=== PATIENT | male | born 1965 | race Caucasian/White ===

== ENCOUNTER 2020-06-19 17:17 | Emergency (ER) | payer OTHER, SELFPAY ==
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
[2020-06-19 17:30] VITALS: BP 134/91; PULSE 74; RESP 15; TEMP 36.7; O2SAT 98; BMI 20.4
[2020-06-19 17:39] VITALS: BP 134/91; PULSE 74; RESP 14; TEMP 36.7; O2SAT 98
== END 2020-06-19 17:39 | disposition home or self-care (01) ==
LOC: ER 17:51
PROVIDERS: Emergency Provider Emergency Medicine
DX: S46.812A Strain of other muscles, fascia and tendons at shoulder and upper arm level, left arm, initial encounter (principal); V43.52XA Car driver injured in collision with other type car in traffic accident, initial encounter; Y92.414 Local residential or business street as the place of occurrence of the external cause; R03.0 Elevated blood-pressure reading, without diagnosis of hypertension
CPT/HCPCS: 99281

== ENCOUNTER 2021-11-19 09:00 | Emergency (ER) | payer OTHER, SELFPAY ==
[2021-11-19 09:13] VITALS: BP 137/82; PULSE 81; RESP 16; TEMP 36.8; O2SAT 99; BMI 23.0
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
[2021-11-19 10:15] VITALS: BP 137/82; PULSE 81; RESP 16; TEMP 36.8
== END 2021-11-19 10:16 | disposition home or self-care (01) ==
PROVIDERS: Emergency Provider Nurse Practitioner Family
DX: M54.2 Cervicalgia (principal); M43.6 Torticollis; V89.2XXS Person injured in unspecified motor-vehicle accident, traffic, sequela
CPT/HCPCS: 72050; 99213; G0463

== ENCOUNTER → 2022-11-11 09:30 | Outpatient (CLI) | payer BC, SELFPAY ==
[2022-11-11 10:24] LABS: Basophils # 0.1 K/mm3 (0-0.2); Basophils % 1.6 % (0.1-2.0); Eosinophils # 0.2 K/mm3 (0.0-0.4); Eosinophils % 4.2 % (0.1-12.0); Hematocrit 46.4 % (42.0-52.0); Hemoglobin 14.9 g/dL (14.1-18.0); Lymphocytes # 1.8 K/mm3 (0.7-4.5); Lymphocytes % 41.4 % (10-50); Mean Corpuscular HGB Conc 32.1 g/dL (31.8-35.4); Mean Corpuscular Hemoglobin 31.7 pg (27.0-31.2); Mean Corpuscular Volume 98.9 fl (80-94); Mean Platelet Volume 8.2 fl (7.4-10.4); Monocytes # 0.3 K/mm3 (0.1-1.0); Monocytes % 7.3 % (1.7-9.3); Neutrophils % 45.4 % (37.0-80.0); Platelet Count 203 K/mm3 (142-424); Red Blood Count 4.69 M/mm3 (4.60-6.20); Red Cell Distribution Width 13.5 % (11.5-17.5); White Blood Count 4.3 K/mm3 (4.8-10.8)
[2022-11-11 10:45] LABS: Alanine Aminotransferase 33 U/L (12-78); Albumin Level 4.8 g/dl (3.5-5.0); Albumin/Globulin Ratio 1.8 (1.1-1.8); Alkaline Phosphatase 64 U/L (38-126); Anion Gap 10.8 mEq/L (5-15); Aspartate Amino Transferase 43 U/L (17-59); Blood Urea Nitrogen 12 mg/dl (9-20); Calcium 10.1 mg/dl (8.4-10.2); Carbon Dioxide 32 mmol/L (22.0-30.0); Chloride 98 mmol/L (98-107); Chol/HDL Ratio 2.1 (1-3.5); Cholesterol 219 mg/dl (140-200); Estimated Glomerular Filt Rate 115 ml/min (>60); GFR (African American) 140 ML/MIN (>60); Globulin 2.7 g/dL (1.3-3.2); Glucose 81 mg/dl (74-100); HDL Cholesterol 105 mg/dl (40-60); Potassium 4.8 mmoL/L (3.5-5.1); Sodium 136 mmol/L (136-145); Total Protein,Serum 7.5 g/dl (6.3-8.2); Triglycerides 80 mg/dl (30-150); VLDL Cholesterol 16 mg/dL (0-40)
[2022-11-11 11:02] LABS: 25-OH Vitamin D, Total 40.3 ng/mL (30-100)
[2022-11-11 11:17] LABS: Prostate Specific Ag Screen 1.1 ng/ml (0.0-4.0); Thyroid Stimulating Hormone 2.64 uIU/mL (0.465-4.68)
== END ==
PROVIDERS: PCP Family Medicine; Visit Provider Family Medicine
DX: Z00.00 Encounter for general adult medical examination without abnormal findings (principal); Z12.5 Encounter for screening for malignant neoplasm of prostate
CPT/HCPCS: 36415; 80053; 80061; 82306; 84443; 85025; G0103

== ENCOUNTER 2023-03-18 17:06 | Emergency (ER) | payer OTHER, BC, SELFPAY ==
[2023-03-18 17:07] VITALS: BP 122/84; PULSE 84; RESP 18; TEMP 36.9; O2SAT 100; BMI 21.7
--- NOTE | 2023-03-18 17:10 | PC.NURSE ---
Neg. FAST by Dr. Dempsey at bedside. Family at bedside.
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
[2023-03-18 17:31] VITALS: BP 125/75; PULSE 76; O2SAT 99
--- NOTE | 2023-03-18 17:35 | PC.NURSE ---
20g PIV inserted to left FA. XR at bedside.
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
--- NOTE | 2023-03-18 17:55 | PC.NURSE ---
pt arrived back to room from ct
[2023-03-18 18:23] LABS: Basophils % 0.4 % (0.1-2.0); Eosinophils # 0.2 K/mm3 (0.0-0.4); Hematocrit 39.7 % (42.0-52.0); Hemoglobin 12.7 g/dL (14.1-18.0); Lymphocytes # 1.6 K/mm3 (0.7-4.5); Lymphocytes % 35.2 % (10-50); Mean Corpuscular HGB Conc 31.9 g/dL (31.8-35.4); Mean Corpuscular Hemoglobin 30.7 pg (27.0-31.2); Mean Corpuscular Volume 96.3 fl (80-94); Mean Platelet Volume 8.2 fl (7.4-10.4); Monocytes # 0.3 K/mm3 (0.1-1.0); Monocytes % 7.4 % (1.7-9.3); Neutrophils # 2.3 K/mm3 (1.8-7.8); Neutrophils % 52.9 % (37.0-80.0); Platelet Count 187 K/mm3 (142-424); Red Blood Count 4.12 M/mm3 (4.60-6.20); Red Cell Distribution Width 14.1 % (11.5-17.5); White Blood Count 4.4 K/mm3 (4.8-10.8)
[2023-03-18 18:30] VITALS: BP 129/83; PULSE 69; O2SAT 99
[2023-03-18 18:36] LABS: Chloride 105 mmol/L (98-107); Potassium 3.6 mmoL/L (3.5-5.1); Sodium 137 mmol/L (136-145)
[2023-03-18 18:38] LABS: Alanine Aminotransferase 48 U/L (12-78); Alkaline Phosphatase 77 U/L (38-126); Aspartate Amino Transferase 65 U/L (17-59); Bilirubin,Total 0.6 mg/dl (0.2-1.3); Blood Urea Nitrogen 16 mg/dl (9-20); Creatinine Clearance Estimated 105 mL/min (50-200); Estimated Glomerular Filt Rate 99 ml/min (>60); GFR (African American) 120 ML/MIN (>60)
[2023-03-18 18:39] LABS: Albumin Level 4.1 g/dl (3.5-5.0); Albumin/Globulin Ratio 1.5 (1.1-1.8); Anion Gap 7.6 mEq/L (5-15); Calcium 9.5 mg/dl (8.4-10.2); Carbon Dioxide 28 mmol/L (22.0-30.0); Globulin 2.8 g/dL (1.3-3.2); Glucose 93 mg/dl (74-100); Total Protein,Serum 6.9 g/dl (6.3-8.2)
--- NOTE | 2023-03-18 19:20 | PC.NURSE ---
Thumb spike splint placed on pts Right thumb/hand. Pt given instructions on care. CR
--- NOTE | 2023-03-18 19:25 | PC.NURSE ---
rounded on pt, pt has family at [place], states no needs at this time.
[2023-03-18 19:29] VITALS: BP 121/82; PULSE 74; RESP 14; TEMP 36.7
--- NOTE | 2023-04-08 15:45 | PC.NURSE ---
Pt called requesting that this note be put in his file. He is requesting a call back from Dr. Dempsey for further referral for his neck and back pain. 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 He continued to insist that Dr Dempsey is who he wanted to speak to. I advised i woulkd make a note and I would let Dr Dempsey know of his wishes. Pt gave me cell number of [phone].
== END 2023-03-18 19:41 | disposition home or self-care (01) ==
PROVIDERS: Emergency Provider Emergency Medicine
DX: S62.234A Other nondisplaced fracture of base of first metacarpal bone, right hand, initial encounter for closed fracture (principal); V49.40XA Driver injured in collision with unspecified motor vehicles in traffic accident, initial encounter; M54.2 Cervicalgia; M54.6 Pain in thoracic spine
CPT/HCPCS: 70450; 71045; 72125; 72128; 72131; 72170; 73030; 73060; 73070; 73090; 73130; 80053; 85025; 96361; 96374; 96375; 99285; J0131

== ENCOUNTER 2024-07-28 06:26 | Day surgery (SDC) | payer BC, SELFPAY ==
[2024-07-25 14:22] VITALS: BMI 20.5
[2024-07-28 06:42] VITALS: BP 121/76; PULSE 70; RESP 18; TEMP 36.3; O2SAT 99
[2024-07-28] MEDS: LACTATED RINGERS 1000ML 1,000 ML 25 ML IV (06:50)
--- NOTE | 2024-07-28 06:57 | HMH.SCOPE ---
Procedure: Date: 07/28/24 Patient Date of :: 1965 Procedure Performed:: Total colonoscopy to terminal ileum with polypectomy using cold snare Indications:: Patient is a 59-year-old male from [facility]. Primary care provider is Ant Ness in [place]. He has never had prior colonoscopy. He did have a positive Cologuard 2-1/2 years ago in December 2021. He does state that he may have had some change in his bowel habits with some ribbonlike stools but he does state that he eats a bag of steamed spinach every morning. Incidentally the patient does have bilateral inguinal hernias apparently. He denies any pain with defecation. Denies any bleeding. No family history of colon cancer. . Performing Provider:: Eulalio Lopez MD Referring Provider:: Ant Ness Sedation:: MAC sedation Procedure:: Patient history was obtained and appropriate physical examination was performed. Patient's medications and allergies were reviewed. Informed consent was obtained after explaining the benefits, alternatives, and risks of the procedure including, but not limited to, bleeding, perforation, missed lesions, and adverse reaction to anesthesia medications. Patient was transported to endoscopy procedure room. Patient was connected to monitoring devices. Throughout the procedure the patient's blood pressure, pulse, and oxygen saturations were monitored continuously. Patient identification and planned procedure were verified by the staff. Patient was positioned in lateral decubitus position. Digital anorectal exam was performed. Variable stiffness Olympus colonoscope was inserted and advanced under direct visualization to the cecum. Adequacy of the colonic preparation was noted. The colonoscope was advanced a short distance into the terminal ileum. The colonoscope was then slowly withdrawn while carefully examining the color, texture, anatomy, and integrity of the mucosoa circumferentially. Within the rectum retroflexion was performed. Colonoscope was then withdrawn. Impression: Colonoscope was advanced to the cecum with some difficulty as there was some atony and significant redundancy mostly of the sigmoid colon with prolapsing mucosa. As the colonoscope was advanced there was noted to be a possible polyp. Colonic preparation was good. Colonoscope was advanced a short distance into the terminal ileum and there was some lymphoid hyperplasia. In the ascending colon there were a couple of diverticuli noted. Colonoscope was slowly withdrawn. In the rectosigmoid region at about 20 cm from the anal verge there was an adenomatous appearing polyp removed with cold snare. Colonoscope was then withdrawn to the rectum. This polyp did not necessarily appear consistent with a possible polyp noted upon advancement of the colonoscope. Therefore the colonoscope was advanced to the cecum once again. As noted previously this required some abdominal pressure for advancement due to redundancy of the sigmoid colon. Ileocecal valve and appendiceal orifice were clearly identified. Colonoscope was slowly withdrawn with careful surveillance. Previously noted ascending colon diverticuli were visualized. Careful surveillance was carried out throughout. Previous polypectomy site was noted. There were no other polyps noted. Retroflexion revealed minor internal hemorrhoids. Colonoscope was withdrawn. . Findings:: Redundant somewhat atonic colon mostly sigmoid Couple of ascending diverticuli Rectosigmoid polyp . Recommendations:: Given the polyp, previous Cologuard, and lack of relaxation with atony and redundancy of the colon, may repeat colonoscopy 1 year. Complications:: None immediately apparent Estimated blood obtained (mL): 1 Colonoscopy Component Colonoscopy Component Was a colonoscopy performed during today's procedure?: Yes Recommended follow up colonoscopy of at least 10 years?: No If no, follow up colonoscopy recommended in ___ years?: See above Reason for not recommending >/= 10 yr follow-up interval?: See
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
[2024-07-28 07:23] VITALS: O2SAT 100
[2024-07-28 08:37] VITALS: BP 85/57; PULSE 65; RESP 16; TEMP 36.2; O2SAT 97
[2024-07-28 08:47] VITALS: BP 86/51; PULSE 48; RESP 16; O2SAT 100
[2024-07-28 08:57] VITALS: BP 92/56; PULSE 47; RESP 16; O2SAT 100
[2024-07-28 09:07] VITALS: BP 101/61; PULSE 50; RESP 18; O2SAT 100
== END 2024-07-28 09:07 | disposition home or self-care (01) ==
PROVIDERS: PCP Family Medicine; Visit Provider Surgery
PROC: 0DJD8ZZ Inspection of Lower Intestinal Tract, Via Natural or Artificial Opening Endoscopic (ICD-10-PCS; CPT 45385; principal; 2024-07-28 07:30)
DX: R19.5 Other fecal abnormalities (principal); K57.30 Diverticulosis of large intestine without perforation or abscess without bleeding; K63.5 Polyp of colon; K64.8 Other hemorrhoids
CPT/HCPCS: 45385; J1595; J2704; J7120

== ENCOUNTER 2025-08-10 07:22 | Day surgery (SDC) | payer BC, SELFPAY ==
[2025-08-08 15:34] VITALS: BMI 22.4
--- NOTE | 2025-08-10 06:17 | EXP.GEN.HP ---
HPI HPI HPI: Patient is a 60-year-old male who presents for 1 year follow-up colonoscopy. He is from [facility]. I had performed initial screening colonoscopy on him on a 07/28/2024. Prior to that he did have a positive Cologuard 2-1/2 years before his colonoscopy in December 2021. Reportedly the patient has known bilateral inguinal hernias. At the time he had redundant somewhat atonic sigmoid colon with a couple of ascending diverticuli and rectosigmoid polyp (tubular adenoma). Visualization was somewhat difficult given the lack of relaxation and atony and redundancy of the colon. Therefore, in light of this along with the positive Cologuard I recommended a 1 year follow-up colonoscopy. . [facility] Disclaimer: The information contained in this section may have been updated after the patient was seen, as this information can be updated by other users. Medical History History of colon polyps Left upper arm injury Wears hearing aid History of COVID-19 Surgical History Hx of tonsillectomy History of hand surgery Family History Other Amyotrophic lateral sclerosis/progressive muscular atrophy Hyperlipidemia Hypertension Social History Smoking Status: Never smoker alcohol intake: current substance use type: former substance user current occupational status: employed Travel in the last 8 weeks?: Inside the [place] caffeine: Yes Have you lived/traveled outside US in past 30 days?: No Contact w/someone who lives/traveled outside US past 30 days?: No Exposure to someone with infectious disease in past 14 days?: No Do you have a fever (greater than 100.4 F or 38 C)?: No Have you tested positive for COVID-19?: No Exposed to someone with COVID-19 in past 14 days?: No Do you have a sore throat?: No Do you have a cough?: No Do you have any weakness?: No Are you experiencing any nausea/vomitting?: No Do you have any diarrhea?: No Are you experiencing any unusual bleeding?: No Do you have any muscle aches/pain?: No Do you have any abdominal pain?: No Are you experiencing loss of taste or smell?: No Other Medical History Have you received the Flu Vaccine for this season: No Have you received the Pneumonia Vaccine: No Meds Home Medications and Allergies Home Medications ?Medication ?Instructions ?Recorded ?Confirmed ?Type multivitamin 1 tab PO DAILY 07/12/23 08/08/25 History cholecalciferol (vitamin D3) 10 0 mcg PO DAILY 07/28/24 08/08/25 History mcg (400 unit) capsule (Vitamin D3) sodium sul 1.479 gram-potas ch See Rx Instructions PO PER PKG DIR 07/05/25 08/08/25 Rx 0.188 gram-magnes sul 0.225 gram #24 tabs tablet (Sutab) New Prescriptions to Start Prescriptions: Allergies Allergy/AdvReac Type Severity Reaction Status Date / Time No Known Allergies Allergy Verified 08/10/25 07:36 Exam Data for Last 24 hours I & O for Last 24 hours: Intake & Output 08/07/25 08/08/25 08/09/25 08/10/25 11:59 11:59 11:59 11:59 Weight 165 lb Constitutional Constitutional: no acute distress *Routine HEENT Exam Head: Present normocephalic Eye: Present EOMI and PERRL ENT: Present mucous membranes moist *Routine Neck Exam Neck: Present supple; Absent lymphadenopathy *Routine Respiratory Exam Respiratory: Present CTA bilaterally *Routine Cardiovascular Exam Cardiovascular: Present RRR *Routine Abdominal Exam Abdominal: Present soft and normoactive bowel sounds; Absent tenderness *Routine Rectal Exam Rectal:: deferred *Routine Genitalia Exam Genitalia:: deferred *Routine Extremities Exam Extremities: Absent cyanosis, clubbing or edema *Routine Skin Exam Skin: Present warm; Absent rash *Routine Neurological Exam Neurological: Present alert and oriented X3 Assessment and Plan *Assessment and plan (1) History of colon polyps: Status: Acute Category: Medical Code(s): Z86.0100 - Personal history of colon polyps, unspecified Plan Colonoscopy
[2025-08-10 07:38] VITALS: BP 123/72; PULSE 72; RESP 16; TEMP 36.1; O2SAT 99
[2025-08-10] MEDS: LACTATED RINGERS 1000ML 1,000 ML 50 ML IV (07:49)
--- NOTE | 2025-08-10 07:55 | P.PNANES_ITS ---
[facility] Disclaimer: The information contained in this section may have been updated after the patient was seen, as this information can be updated by other users. Medical History History of colon polyps Left upper arm injury Wears hearing aid History of COVID-19 Surgical History Hx of tonsillectomy History of hand surgery Family History Other Amyotrophic lateral sclerosis/progressive muscular atrophy Hyperlipidemia Hypertension Social History Smoking Status: Never smoker alcohol intake: current substance use type: former substance user current occupational status: employed Travel in the last 8 weeks?: Inside the [place] caffeine: Yes Have you lived/traveled outside US in past 30 days?: No Contact w/someone who lives/traveled outside [place] past 30 days?: No Exposure to someone with infectious disease in past 14 days?: No Do you have a fever (greater than 100.4 F or 38 C)?: No Have you tested positive for COVID-19?: No Exposed to someone with COVID-19 in past 14 days?: No Do you have a sore throat?: No Do you have a cough?: No Do you have any weakness?: No Are you experiencing any nausea/vomitting?: No Do you have any diarrhea?: No Are you experiencing any unusual bleeding?: No Do you have any muscle aches/pain?: No Do you have any abdominal pain?: No Are you experiencing loss of taste or smell?: No [facility] Anesthesia Checklist Patient Identification Patient Identification: Arm Band and Verbal (Name & ) Structural Data Admitted From: Home Planned Operative Procedure/s: Colonoscopy Consent for Planned Operative Procedure(s) Verified: Yes Verified Documents: Surgical Consent NPO Status Verified Time NPO: 00:00 Chart Verification Results Verified: None Additional verifications Anesthesia Reactions: No Airway Assessment Mallampati Score:: Class II C-Spine Mobility Assessed: Yes TMJ Mobility Assessed: Yes Dentition: Good Dentition Neurological Assessment Level of Consciousness: Awake, Alert and Appropriate Hx Seizures: No Numbness or tingling in extremities: No Anesthesia Plan Anesthesia Risk discussed: Yes Anesthesia Plan: Verified ASA Class: II Anesthesia Type: MAC
--- NOTE | 2025-08-10 08:47 | HMH.SCOPE ---
Procedure: Date: 08/10/25 Patient Date of :: 1965 Procedure Performed:: Total colonoscopy to ileocecal valve with polypectomy using snare Indications:: Patient is a 60-year-old male who presents for 1 year follow-up colonoscopy. He is originally from [facility]. I had performed initial screening colonoscopy on him on a 07/28/2024. Prior to that he did have a positive Cologuard 2-1/2 years before his colonoscopy in December 2021. Reportedly the patient has known bilateral inguinal hernias. At the time he had redundant somewhat atonic sigmoid colon with a couple of ascending diverticuli and rectosigmoid polyp (tubular adenoma). Visualization was somewhat difficult given the lack of relaxation and atony and redundancy of the colon. Therefore, in light of this along with the positive Cologuard I recommended a 1 year follow-up colonoscopy. . Performing Provider:: Eulalio Lopez MD Referring Provider:: Ant Ness MD Sedation:: MAC sedation Procedure:: Patient history was obtained and appropriate physical examination was performed. Patient's medications and allergies were reviewed. Informed consent was obtained after explaining the benefits, alternatives, and risks of the procedure including, but not limited to, bleeding, perforation, missed lesions, and adverse reaction to anesthesia medications. Patient was transported to endoscopy procedure room. Patient was connected to monitoring devices. Throughout the procedure the patient's blood pressure, pulse, and oxygen saturations were monitored continuously. Patient identification and planned procedure were verified by the staff. Patient was positioned in lateral decubitus position. Digital anorectal exam was performed. Variable stiffness Olympus colonoscope was inserted and advanced under direct visualization to the cecum. Adequacy of the colonic preparation was noted. The colonoscope was advanced a short distance into the terminal ileum. The colonoscope was then slowly withdrawn while carefully examining the color, texture, anatomy, and integrity of the mucosoa circumferentially. Within the rectum retroflexion was performed. Colonoscope was then withdrawn. Impression: Colon was appreciably redundant with some floppiness which required abdominal pressure for advancement of the colonoscope and patient being placed temporarily in a supine position. Colonoscope was carefully withdrawn with careful surveillance. There was a several millimeter moderate sessile adenomatous appearing polyp in the descending colon removed with hot snare. In the sigmoid colon there was a small polyp removed with cold snare. In the rectum and rectosigmoid area there were several hyperplastic appearing polyps but 1 appeared more prominent and potentially adenomatous and this was removed with cold snare. . Findings:: Redundant somewhat floppy colon Polyps as noted Recommendations:: Repeat colonoscopy pending pathology Complications:: None immediately apparent Estimated blood obtained (mL): 1 Colonoscopy Component Colonoscopy Component Was a colonoscopy performed during today's procedure?: Yes Recommended follow up colonoscopy of at least 10 years?: No If no, follow up colonoscopy recommended in ___ years?: See above Reason for not recommending >/= 10 yr follow-up interval?: See above
[2025-08-10 08:49] VITALS: BP 92/51; PULSE 66; RESP 18; TEMP 36.2; O2SAT 97
[2025-08-10 08:59] VITALS: BP 101/62; PULSE 70; O2SAT 99
[2025-08-10 09:09] VITALS: BP 104/62; PULSE 59; O2SAT 98
[2025-08-10 09:19] VITALS: BP 103/57; PULSE 62; O2SAT 99
== END 2025-08-10 09:19 | disposition home or self-care (01) ==
PROVIDERS: PCP Family Medicine; Visit Provider Surgery
PROC: 0DJD8ZZ Inspection of Lower Intestinal Tract, Via Natural or Artificial Opening Endoscopic (ICD-10-PCS; CPT 45385; principal; 2025-08-10 08:30)
DX: K63.5 Polyp of colon (principal); Z86.0100 Personal history of colon polyps, unspecified
CPT/HCPCS: 45385; J2003; J2704; J7120

== ENCOUNTER 2025-08-21 08:19 | Outpatient (CLI) | payer BC, SELFPAY ==
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
--- OUTSIDE RECORDS SUMMARY | 2025-08-21 08:22 | XMS_ITS | Encounter Summary ---
Author Organization [facility] Address [address] [place] [address] Care Team Providers Care Pest Controller Assistant Name Role Phone Ant Ness MD Primary Care Provider [phone] Reason for Visit * Reason Onset Date Comments Results 08/14/2025 Encounter Details Date Type Department Care Team (Late st Contact Info) Description 08/14/[address] [phone] [address] [facility] [address] [place] [address] Ant Ness MD [address] [facility] [address] [place] [address] Results Social History Tobacco Use Types Packs/Day Years Used Date Smoking Tobacco: Never Smokeless Tobacco: Never Alcohol Use Standard Drinks/Week Comments Yes 0 (1 standard drink = 0.6 oz pur e alcohol) 7-8 cans of beer nightly Sex and Gender Information Value Date Recorded Sex Assigned at Not on file Legal Sex Male 11:34 AM EDT Gender Identity Not on file Sexual Orientation Not on file documented as of this encounter Miscellaneous Notes * Telephone Encounter - Cris Christianson MA - 08/14/2025 2:20 PM EST Called and informed pt * Telephone Encounter - Terri Arboleda NP - 08/14/2025 1:54 PM EST Reports shows hyperplastic polyps (benign). Await further recommendations on follow up colonoscopy needs from specialist. * Telephone Encounter - Shelly Fisher - 08/14/2025 1:26 PM EST Patient calling in to see if we have received the colonoscopy results yet. He states that their office faxed it to us 1 hour ago. States he really needs to know the results today and that he is having a mental health issue because of this. He states that he just wants to know before the holiday if he has cancer or not . He asks that I sent this high priority. * Telephone Encounter - Yesenia Martin - 08/14/2025 11:45 AM EST Pt called stating he got a colonoscopy done 08/10/2025 and he called for the results today and theyadvised him is OOO until after the holidays and advised him to reach out to PCP and have them reach out to them to request a copy of the results be faxed to us and patient is asking if someone from our office can call him with the results today, I advised him that normally they would justfax us over the results and he states they advised him someone from our office would have to call them directly to get a copy. [facility] [phone] documented in this encounter Plan of Treatment Upcoming Encounters Date Type Department Care Team (Late st Contact Info) Description 08/31/2025 10:30 AM EST Appointment [phone] [address] [facility] [address] [place] [address] Ant Ness MD [address] [facility] [address] [place], [place] [id number] documented as of this encounter Visit Diagnoses Not on filedocumented in this encounter Care Teams Pest Controller Assistant Relationship Specialty Start Date End Date Ant Ness MD [address] [facility] [address] [place] [address] PCP - General Family Medicine 05/26/22 documented as of this encounter
--- OUTSIDE RECORDS SUMMARY | 2025-08-21 08:22 | XMS_ITS | Encounter Summary ---
Author Organization Healthcare Address [address] [place] [address] Care Team Providers Care Auriculotherapist Name Role Phone Pcp, No Primary Care Provider Unavailabl e Encounter Details Date Type Department Care Team (Late st Contact Info) Description 04/08/2023 Lab Requisition [facility] [address] [place] [address] Cary Burns MD [address] [place] [address] Unspecified general medical examination Social History Tobacco Use Types Packs/Day Years Used Date Smoking Tobacco: Never Smokeless Tobacco: Never Alcohol Use Standard Drinks/Week Comments Yes 3 (1 standard drink = 0.6 oz pur e alcohol) PHQ-2 Answer Date Recorded Patient Health Questionnaire-2 Score 2 04/01/2023 Sex and Gender Information Value Date Recorded Sex Assigned at Not on file Legal Sex Male 9:47 AM EDT Gender Identity Not on file Sexual Orientation Not on file documented as of this encounter Plan of Treatment Not on file documented as of this encounter Procedures Procedure Name Priority Date/Time Associated Diagnosis Comments HC 418 HIV-1 AG W/COMB 1&2 AB Routine 04/08/2023 7:50 AM EDT Unspecified general medical examination SOURCE, BBFE HEPATITIS B S AG Routine 04/08/2023 7:50 AM EDT Unspecified general medical examination documented in this encounter Results * Bloodborne Exposure HIV Antibody/Antigen (04/08/2023 7:50 AM EDT) HIV 1 & 2 Antibody/Anti gen Screen Non Reactive Non Reactive 04/08/2023 10:54 AM EDT [facility] Blood Venous blood specimen / Unknown 04/08/2023 7:50 AM EDT 04/08/2023 8:16 AM EDT us Cary Burns MD LAB BLOOD ORDERABLES Final Resul t Performing Organization Address [facility] de Phone Number [facility] [address] [place] [address] * Bloodborne Exposure Hepatitis B Surface Antigen (04/08/2023 7:50 AM EDT) Hepatitis B Surf Antigen Negative Negative 04/08/2023 10:52 AM EDT [facility] Blood Venous blood specimen / Unknown 04/08/2023 7:50 AM EDT 04/08/2023 8:16 AM EDT us Cary Burns MD LAB BLOOD ORDERABLES Final Resul t Performing Organization Address [facility] de Phone Number [facility] [address] [place] [address] documented in this encounter Visit Diagnoses Diagnosis Unspecified general medical examination documented in this encounter Additional Health Concerns Assessment Noted Time A fall risk assessment has been complete d for the patient 04/01/2023 2:44 PM EDT documented as of this encounter Care Teams Auriculotherapist Relationship Specialty Start Date End Date Pcp, Marilee [address] [place] [address] PCP - General Family Medicine 04/27/24 documented as of this encounter
--- OUTSIDE RECORDS SUMMARY | 2025-08-21 08:22 | XMS_ITS | Encounter Summary ---
Author Organization [facility] Address [address] [place] [address] Care Team Providers Care Bone Grinder Name Role Phone Ant Ness MD Primary Care Provider [phone] Reason for Visit * Reason Onset Date Comments Orders Needed 08/07/2025 Encounter Details Date Type Department Care Team (Late st Contact Info) Description 08/07/2025 Telephone [phone] [address] [facility] [address] [place] [address] Ant Ness MD [address] [facility] [address] [place] [address] Orders Needed (/) Social History Tobacco Use Types Packs/Day Years [...] encounter Miscellaneous Notes * Telephone Encounter - Hermelinda Quiroz MA - 08/07/2025 2:57 PM EST Labs faxed to the number provided. * Telephone Encounter - Ant Ness MD - 08/07/2025 2:52 PM EST Signed off. Please fax * Telephone Encounter - Hermelinda Quiroz MA - 08/07/2025 11:19 AM EST Labs pending. * Telephone Encounter - Yesenia Martin - 08/07/2025 11:12 AM EST Pt called stating he is scheduled for CP 08/31/2025 and he is requesting lab work prior and would like the orders faxed to [phone] and pt is asking for a cover sheet to be sent with these orders. documented in this encounter Plan of Treatment Upcoming Encounters Date Type Department Care Team (Late st Contact Info) Description 08/31/2025 10:30 AM EST Appointment [facility] ([phone][facility] [address] [facility] [address] [place] [address] Ant Ness MD [address] [facility] [address] [place], [place] [id number] Scheduled Orders Name Type Priority Associated Diagnoses Orde r Schedule COMPREHENSIVE METABOLIC PANEL Lab Routine Routine physical examination Medication management Ordered: 08/07/2025 CBC WITH DIFFERENTIAL Lab Routine Routine physical examination Medication management Ordered: 08/07/2025 LIPID PROFILE Lab Routine Routine physical examination Medication management Ordered: 08/07/2025 PSA (PROSTATE SPECIFIC AG) Lab Routine Routine physical examination Medication management Ordered: 08/07/2025 VITAMIN D 25 HYDROXY TOTAL Lab Routine Routine physical examination Medication management Ordered: 08/07/2025 TSH 3RD GEN, REFLEX FT4 Lab Routine Routine physical examination Medication management Ordered: 08/07/2025 documented as of this encounter Visit Diagnoses Diagnosis Routine physical examination- Primary Routine general medical examination at a health care facility Medication management Encounter for long-term (current) use of other medications documented in this encounter Care Teams Bone Grinder Relationship Specialty Start Date End Date Ant Ness MD [address] [facility] [address] [place], [place] [id number] PCP - General Family Medicine 05/26/22 documented as of this encounter
--- OUTSIDE RECORDS SUMMARY | 2025-08-21 08:22 | XMS_ITS | Clinical Summary ---
Author Organization [facility] Address [address] [place] [address] Care Team Providers Care Rehabilitation Psychologist Name Role Phone Ant Ness MD Primary Care Provider [phone] Allergies No known active allergies Medications * This document contains information received from the source organization and may not represent a complete record from that organization. Multiple Vitamin (MULTIVITAMIN OR) 1 daily Active lamoTRIgine (LAMICTAL) 100 MG TABS Take 1 tablet by mouth 2 (two) times daily. 180 tablet 2 02/05/2021 Active QUEtiapine (SEROQUEL) 100 mg tablet Take 1 tablet by mouth nightly. 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 Fairly stable. Drug abuse in remission. We manage. Will need to transfer to psychiatry if becomes uncontrolled or loses sobriety from drugs. [place] town with [place] resources. 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 Dr zamora consulted in 2019. 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/16/2006 Overview (07/26/2010): Resolved Problems Problem Noted Date Diagnosed Date Resolved Date Streptococcal sore throat 12/24/2007 Overview (07/26/2010): General medical examination 08/10/2007 05/19/2013 Overview (07/26/2010): Dysfunction of eustachian tube 07/29/2006 09/18/2020 Overview (07/26/2010): Disturbance of skin sensation 07/29/2006 09/18/2020 Overview (07/26/2010): Acute upper respiratory infection 07/16/2006 09/18/2020 Overview (07/26/2010): Cocaine dependence, continuous 07/16/2006 09/18/2020 Overview (07/26/2010): Immunizations Immunization Administration Dates Next Due FLU VACCINE, 3 YRS AND OLDER 06/10/2015 Influenza Vaccine, Inactivated, Quadrivalent PF 06/13/2020 Family History Medical History Relation Name Comments High BP Father head trauma Father COPD Mother Thyroid Disease Mother Multiple sclerosis Sister Relation Name Status Comments Father Mother copd Sister Alive Social History Tobacco Use Types Packs/Day Years Used Date Smoking Tobacco: Never Smokeless Tobacco: Never Tobacco Cessation:Counseling Given: Yes Alcohol Use Standard Drinks/Week Comments Yes 0 (1 standard drink = 0.6 oz pur e alcohol) 7-8 cans of beer nightly Food Insecurities Answer Date Recorded Worried about running out of food Not on file 09/12/2023 Food Bought Not on file 09/12/2023 Housing/Utilities Answer Date Recorded Worried about losing home Not on file 2023 Stayed outside house Not on file 09/12/2023 Unable to get utilities Not on file 09/12/19 24 Interpersonal Safety Answer Date Record ed Feel physically or emotionally unsafe where curr ently live Not on file 09/12/2023 Harm by anyone Not on file 09/12/2023 Emotionally Harmed Not on file 09/12/2023 Transportation Answer Date Recorded Worried about transportation Not on file Utilities Answer Date Recorded Worried about losing home Not on file 2023 Stayed outside house Not on file 12/26/2023 Unable to get utilities Not on file 12/26/19 24 Sex and Gender Information Value Date Recorded Sex Assigned at Not on file Legal Sex Male 8:25 PM EDT Gender Identity Not on file Sexual Orientation Not on file 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 Not on file Not on file Not on file Last Filed Vital Signs Vital Sign Reading Time Taken Comments Blood Pressure 122/80 09/18/2020 3:39 PM EST Pulse 72 09/18/2020 3:39 PM EST Temperature 36.3 C (97.3 F) 09/18/2020 3:39 PM EST Respiratory Rate 18 07/17/2019 4:18 PM EST Oxygen Saturation - - Inhaled Oxygen Concentration - - Weight 80.1 kg (176 lb 8 oz) 09/18/2020 3:39 PM EST Height 182.9 cm (6') 02/05/2021 11:40 AM EDT Body Mass Index 23.94 09/18/2020 3:39 PM EST Plan of Treatment Health Maintenance Due Date Last Done Comments Hepatitis C Screening 1963 DTap,Tdap,and Td (1 - Tdap) 1974 Colonoscopy 2008 PSA YEARLY 2013 Pneumococcal 50+ (1 of 1 - PCV) 2013 Shingrix (#1) 2013 COVID-19 Vaccine (2 - 2024-2 6 season) 2025 05/28/2022 Influenza Vaccine (#1) 2025 , 06/13/2020, 06/10/2015 RSV Vaccine (60+ or ) (1 - 1-dose 75+ series) 2038 HPV Aged Out No longer eligi ble based on patient's age to complete this topic Meningococcal conjugate kt nt 4 (MCV4) Aged Out No longer eligible b ased on patient's age to complete this topic RSV Immunization (<20 months) Aged Out No longer eligible based on patient's age to complete this topic Insurance CROSS ALL OTHERS NOT MEDICARE Care Teams Rehabilitation Psychologist Relationship Specialty Start Date End Date Ant Ness MD PCP - General 07/28/10
--- OUTSIDE RECORDS SUMMARY | 2025-08-21 08:22 | XMS_ITS | Clinical Summary ---
Author Organization Healthcare Address [address] [place] [address] Care Team Providers Care Slicing Machine Feeder Name Role Phone Pcp, No Primary Care Provider Unavailabl e Allergies No known active allergies Medications * This document contains information received from the source organization and may not represent a complete record from that organization. Multiple Vitamin (multivitamin) capsule Take 1 capsule by mouth 1 (one) time each day. Active lamoTRIgine (LaMICtal) 100 MG tablet 02/04/2023 Active methocarbamol (Robaxin) 750 MG tablet TAKE 2 TABLETS BY MOUTH EVERY 8 HOURS FOR 7 DAYS 03/19/2023 Active oxyCODONE (Roxicodone) 5 MG immediate release tablet Take 1 tablet (5 mg) by mouth every 4 (four) hours if needed. 03/24/2023 Active QUEtiapine (SEROquel) 100 MG tablet 02/04/2023 Active Active Problems Problem Noted Date Diagnosed Date Magaña's fracture, right torres nd, initial encounter for closed fracture 04/01/2023 Cocaine abuse in remission 12/23/201104/14 Hereditary and idiopathic peripheral neuropathy 08/10/2007 04/14/2023 Bipolar disorder 07/16/2006 04/14/2023 Overview (04/14/2023): lamictal and seroquel. Fairly stable. Drug abuse in remission. Active in support group near his Home. We manage. Will need to transfer to psychiatry if becomes uncontrolled or loses sobriety from drugs. [place]. 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 zamora consulted in 2019. Family History Medical History Relation Name Comments Heart disease Mother Relation Name Status Comments Mother Social History Tobacco Use Types Packs/Day Years Used Date Smoking Tobacco: Never Smokeless Tobacco: Never Alcohol Use Standard Drinks/Week Comments Yes 3 (1 standard drink = 0.6 oz pur e alcohol) PHQ-2 Answer Date Recorded Patient Health Questionnaire-2 Score 2 05/10/2023 PHQ-2A Answer Date Recorded Patient Health Questionnaire-2 Score 2 05/10/2023 Sex and Gender Information Value Date Recorded Sex Assigned at Not on file Legal Sex Male 9:47 AM EDT Gender Identity Not on file Sexual Orientation Not on file Last Filed Vital Signs Vital Sign Reading Time Taken Comments Blood Pressure 106/68 04/27/2024 9:21 AM EDT Pulse 70 04/27/2024 9:21 AM EDT Temperature 36.8 C (98.2 F) 06/07/2023 11:09 AM EDT Respiratory Rate 11 04/08/2023 9:15 AM EDT Oxygen Saturation 99% 04/27/2024 9:21 AM EDT Inhaled Oxygen Concentration - - Weight 70.3 kg (155 lb) 04/27/2024 9:21 AM EDT Height 185.4 cm (6' 1 ) 04/27/2024 9:21 AM EDT Body Mass Index 20.45 04/27/2024 9:21 AM EDT Plan of Treatment Health Maintenance Due Date Last Done Comments [facility]-HIV Screening 1963 [facility]-Hepatitis C Screening 1963 [facility]-Infant/Child/Adol SDOH Screenings 1963 [facility]- SDOH Screenings 1981 [facility]-Adult SDOH Screenings 1981 [facility]-Pneumococcal Vaccine: 50+ Years (1 of 2 - PCV) 1982 CT Colonography 2008 Colonoscopy 2008 FIT 2008 FOBT 2008 Sigmoidoscopy 2008 [facility]-Depression Screening 05/10/2024 05/10/2023 [id number] Vaccine ( season) 2025 06/24/2023, 05/28/2022, 06/25/2021, Additional history exists [facility]-Influenza Vaccine (#1) 04/23/202506/24, 05/28/2022, 06/09/2021, Additional history exists [facility]-DNA 12/09/2025 12/09/2022 [facility]-Colorectal Cancer Screening 12/09/2025 [facility]-DTaP,Tdap,and Td Vaccines (2 - Td or Tdap) 10/14/2032 10/14/2022 [facility]-RSV Vaccine: 60+ Years or (1 - 1-dose 75+ series) 2038 [facility]-Zoster Vaccines Completed 02/08/2023, HPV Vaccines (No Doses Required) Completed [facility]-HIB Vaccines Aged Out No longer e ligible based on patient's age to complete this topic [facility]-Hepatitis A Vaccines Aged Out No longer eligible based on patient's age to complete this topic [facility]-IPV Vaccines Aged Out No longer e ligible based on patient's age to complete this topic [facility]-Rotavirus Vaccines Aged Out No lo nger eligible based on patient's age to complete this topic Goals Goal Patient Goal Type Associated Problems Recent Progress Patient-Stated? Author Patient will verbalize understanding of orthotic wear , care and precautions. Occupational Therapy On track(2022 1:10 PM EDT) [employer] Implanted Type Area Academic Advisement Director Device Identifier Shelf Expiration Date Model / Serial / Lot K-Wire Dual Trocar 045 X 152mm - [id number] Implanted:Qty: 2 on 04/08/2023 by Christian Casas MD at [facility] Right: Hand [id number] 1 02/18/2027 [id number] / / [id number] Insurance [employer] Member Subscriber Plan / Payer (Ef fective 2023-Present) Name:Ronak Jeffrey Relation to Subscriber:Self Name:Ronak Jeffrey Payer ID:[id number] (NAIC) Type:Not on file Address: [address] [place] [phone] [facility] [employer] Care Teams Slicing Machine Feeder Relationship Specialty Start Date End Date Chelo, [place] [address] PCP - General Family Medicine 04/27/24
[2025-08-21 08:53] LABS: Hematocrit 43.0 % (42.0-52.0); Hemoglobin 14.2 g/dL (14.1-18.0); Immature Granulocytes % 0 %; Mean Corpuscular HGB Conc 33.0 g/dL (31.8-35.4); Mean Corpuscular Hemoglobin 31.0 pg (27.0-31.2); Mean Corpuscular Volume 93.9 fl (80-94); Nucleated Red Blood Cells % 0 %; Platelet Count 200 K/mm3 (142-424); Red Blood Count 4.58 M/mm3 (4.60-6.20); Red Cell Distribution Width-SD 46.5 fL; White Blood Count 3.6 K/mm3 (4.8-10.8)
[2025-08-21 09:09] LABS: Cholesterol 240 mg/dl (140-200); Triglycerides 55 mg/dl (30-150)
[2025-08-21 09:25] LABS: Free T4 (Free Thyroxine) 0.84 ng/dl (0.78-2.19)
[2025-08-21 09:28] LABS: 25-OH Vitamin D, Total 48.3 ng/mL (30-100)
[2025-08-21 09:36] LABS: HDL Cholesterol 154 mg/dl (40-60)
[2025-08-21 09:41] LABS: Thyroid Stimulating Hormone 2.92 uIU/mL (0.465-4.68)
[2025-08-22 10:01] LABS: Albumin Level 4.5 g/dl (3.5-5.0); Chloride 103 mmol/L (98-107)
[2025-08-22 10:02] LABS: Potassium 4.4 mmoL/L (3.5-5.1); Sodium 136 mmol/L (136-145)
[2025-08-22 10:04] LABS: Alanine Aminotransferase 31 U/L (12-78); Blood Urea Nitrogen 16 mg/dl (9-20); Creatinine,Serum 0.90 mg/dl (0.66-1.25); Estimated Glomerular Filt Rate 86 ml/min (>60); GFR (African American) 103 ML/MIN (>60)
[2025-08-22 10:05] LABS: Albumin/Globulin Ratio 1.7 (1.1-1.8); Alkaline Phosphatase 66 U/L (38-126); Anion Gap 8.4 mEq/L (5-15); Aspartate Amino Transferase 44 U/L (17-59); Bilirubin,Total 1.2 mg/dl (0.2-1.3); Calcium 11.0 mg/dl (8.4-10.2); Carbon Dioxide 29 mmol/L (22.0-30.0); Globulin 2.6 g/dL (1.3-3.2); Glucose 101 mg/dl (74-100); Total Protein,Serum 7.1 g/dl (6.3-8.2)
== END 2025-08-21 23:59 | disposition home or self-care (01) ==
LOC: LAB 08:20
PROVIDERS: PCP Family Medicine; Visit Provider Family Medicine
DX: Z00.00 Encounter for general adult medical examination without abnormal findings (principal); Z79.899 Other long term (current) drug therapy
CPT/HCPCS: 36415; 80053; 80061; 82306; 84439; 84443; 85025; G0103